=== PATIENT | male | born 1995 | race Two or more races ===

== ENCOUNTER 2024-10-12 02:41 | Emergency (ER) | payer OTHER, BC, SELFPAY ==
[2024-10-12 02:53] VITALS: BP 107/63; PULSE 71; RESP 18; TEMP 37.1; O2SAT 100
--- NOTE | 2024-10-12 02:56 | ECG_ITS ---
Test Date: 2024-10-12 03:03:16 Measurements Intervals [place] Rate: 73 P: 80 WV: 163 QRS: 68 QRSD: 98 T: 60 QT: 358 QTc: 396 Interpretive Statements SINUS RHYTHM EARLY PRECORDIAL R/S TRANSITION BASELINE ARTIFACT- I, II, III, AVR, AVL, AVF BORDERLINE ECG No previous ECG available for comparison Electronically Signed On 10-12-2024 07:37:56 CDT by Matthew Arthur D.O.
[2024-10-12 03:06] LABS: Hematocrit 46.3 % (42.0-52.0); Hemoglobin 14.9 g/dL (14.0-18.0); Immature Granulocyte Percent A 0.2 % (0-0.5); Lymphocytes Absolute Auto 4.97 K/mm3 (0.9-3.2); Mean Corpuscular HGB Conc 32.2 g/dl (32-36); Mean Corpuscular Hemoglobin 26.9 pg (26-34); Mean Corpuscular Volume 83.7 fl (80-100); Nucleated Red Blood Cells Absolute Auto 0.000 K/mm3 (0.0-0.012); Nucleated Red Blood Cells Perc 0.0 % (0.0-0.2); Platelet Count Result 248 k/mm3 (150-375); Red Blood Count 5.53 M/mm3 (4.6-6.20); White Blood Count 12.7 K/mm3 (4.5-10.0)
--- NOTE | 2024-10-12 03:30 | ED.SYNCOPE ---
HPI - Syncope General Chief Complaint: Syncope Stated Complaint: syncope Time Seen by Provider: 10/12/24 02:55 History of Present Illness HPI narrative: 29-year-old male with no pertinent past medical history presenting to the emergency department after a syncopal episode. Patient states that he has been up late working and did not eat anything since yesterday around midnight. States that he was feeling lightheaded and dizzy and when he went to go walk towards his truck to go home he felt lightheaded and passed out hitting his head against the ground. Did not have any traumatic injuries preceding the fall. Brief loss of consciousness. No blood thinner use. Attributes his symptoms to not eating and being over work last few days. Denies any chronic medical conditions and does not take any blood thinner medications. Acting appropriately here in requesting water. Does not know if his tetanus is up today. Has small abrasions superficially to the anterior forehead. Review of Systems Review of Systems: As reviewed above in HPI Exam Narrative: GENERAL: [Well-appearing, well-nourished, and in no acute distress.] HEAD: [Normocephalic, atraumatic.] EYES: [PERRLA and EOMI.] ENT: Nares clear, no rhinorrhea or epistaxis. Mucous membranes moist. NECK: Supple. CHEST: [Clear to auscultation. No respiratory distress.] HEART: [Regular rate and rhythm]. No murmur heard. [Normal peripheral pulses.] ABDOMEN: [Soft, nondistended], [nontender], [No rigidity or guarding] EXTREMITIES: Normal range of motion. [No edema.] SKIN: Linear abrasions to the anterior forehead without any laceration or active bleeding. 3.0 cm linear laceration very superficial to the lateral parietal scalp without any active bleeding. We no significant dehiscence. NEURO: [No focal deficits]. Alert and oriented [x3.] PSYCH: [Normal mood and affect.] Course Vital Signs Vital signs: Vital Signs Temperature 37.1 C 10/12/24 02:53 Pulse Rate 71 10/12/24 02:53 Respiratory Rate 18 10/12/24 02:53 Blood Pressure 107/63 10/12/24 02:53 Pulse Oximetry 100 10/12/24 02:53 Oxygen Delivery Room Air 10/12/24 02:53 Temperature 37.1 C 10/12/24 02:53 Pulse Rate 61 10/12/24 05:34 Respiratory Rate 18 10/12/24 05:34 Blood Pressure 114/65 10/12/24 05:34 Pulse Oximetry 97 10/12/24 05:34 Oxygen Delivery Room Air 10/12/24 02:53 Procedures Laceration Laceration 1: Date: 10/12/24 Time: 05:56 Site: scalp Side (If applicable): left Size (cm): 3 Description: linear Depth: simple, single layer Local Anesthetic: none Pre-repair: wound explored and irrigated ====== Skin Level ====== Skin layer closed with: dermabond and steri strips ====== Subcutaneous Layer ====== ====== Muscle Layer ====== ====== Tendon Layer ====== Dressing: non adhering dressing MDM - Syncope MDM Narrative Medical decision making narrative: 29-year-old male with no pertinent past medical history presenting to the emergency department after a syncopal episode. Patient states that he has been up late working and did not eat anything since yesterday around midnight. States that he was feeling lightheaded and dizzy and when he went to go walk towards his truck to go home he felt lightheaded and passed out hitting his head against the ground. Did not have any traumatic injuries preceding the fall. Brief loss of consciousness. No blood thinner use. Attributes his symptoms to not eating and being over work last few days. Denies any chronic medical conditions and does not take any blood thinner medications. Acting appropriately here in requesting water. Does not know if his tetanus is up today. Has small abrasions superficially to the anterior forehead. Patient is not any acute distress with reassuring vital signs here without any tachycardia, tachypnea, fever, hypoxia blood pressure concerns. He has an unremarkable neurological assessment, strong symmetric pulses. Clinically appears very well and has low criteria for any significant injury. Meet [place] head CT rules to exclude intracranial pathology at this time. Syncope likely postural and orthostatic verses less likely vasovagal and low suspicion cardiac in nature. 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 Given oral fluids as well without difficulty. Tetanus was updated and local wound care was applied for his forehead abrasions. He also has a separate laceration that is very superficial and not involving the deep tissues laterally on his parietal scalp. This will repaired with Dermabond and Steri-Strips. Hemostasis achieved. Labs show no significant abnormalities. Slight leukocytosis but no anemia or platelet concerns. No signs of infectious pathology. Normal electrolytes, glucose and LFTs. Normal creatinine. EKG shows sinus rhythm. Patient was observed here for several hours without any recurrence or any acute concerns. Remains hemodynamically stable. Tolerating oral intake and safe for discharge home at this time. Patient given return precautions and instructions with follow-up for his PCP. Medical Records Attestation: I reviewed the patient's medical records. Lab Data Attestation: I reviewed the patient's lab results. 10/12/24 02:59 10/12/24 02:59 Labs: Lab Results 10/12/24 Range/Units 02:59 WBC 12.7 H (4.5-10.0) K/mm3 RBC 5.53 (4.6-6.20) M/mm3 Hgb 14.9 (14.0-18.0) g/dL Hct 46.3 (42.0-52.0) % MCV 83.7 (80-100) fl MCH 26.9 (26-34) pg MCHC 32.2 (32-36) g/dl RDW 13.0 (11.5-14.5) % Plt Count 248 (150-375) k/mm3 MPV 10.4 (7.4-10.4) fl Immature Gran % (Auto) 0.2 (0-0.5) % Neut % (Auto) 51.2 (45.5-73.1) % Lymph % (Auto) 39.2 (18.3-44.2) % [place] % (Auto) 8.0 (2.6-8.5) % Eos % (Auto) 0.9 (0-4.4) % Baso % (Auto) 0.5 (0.2-1.2) % Lymph # (Auto) 4.97 H (0.9-3.2) K/mm3 [place] # (Auto) 1.0 H (0.1-0.6) K/mm3 Eos # (Auto) 0.1 (0-0.3) K/mm3 Baso # (Auto) 0.1 (0.0-0.1) K/mm3 Abs Immat Gran (auto) 0.03 (0.00-0.031) K/mm3 Absolute Neuts (auto) 6.5 (1.3-6.7) K/mm3 Absolute Nucleated RBC 0.000 (0.0-0.012) K/mm3 Nucleated RBC % 0.0 (0.0-0.2) % Sodium 138 (137-145) mmol/L Potassium 3.5 (3.4-5.0) mmol/L Chloride 102 (98-107) mmol/L Carbon Dioxide 24 (22-30) mmol/L Anion Gap 12 (4-12) mmol/L BUN 13 (9-20) mg/dL Creatinine 1.18 (0.7-1.3) mg/dL Estim Creat Clear Calc 77 ml/min Estimated GFR > 60 (59 - ) Glucose 117 H (65-110) mg/dL Calcium 10.1 (8.4-10.2) mg/dL Total Bilirubin 0.6 (0.2-1.3) mg/dL AST 31 (17-59) U/L ALT 30 (6-50) U/L Alkaline Phosphatase 76 (38-126) U/L Total Protein 8.1 (6.3-8.2) g/dL Albumin 4.8 (3.5-5.1) g/dL Discharge Plan Discharge Clinical Impression: Syncope, Abrasion of forehead, Laceration of scalp Patient Disposition: Home Condition: Stable Instructions: Antibiotic Form, Syncope (ED) Additional Instructions: Your labs are reassuring, no signs of any acute urgent or emergent concerns. Maintain good hydration and oral intake, try not to skip any meals. Return with any emergent concerns otherwise follow-up with regular doctor. Keep the laceration area clean and dry and covered for the next 24 hours. Bandage dressing changes as needed. Follow-up with regular doctor. Allow the skin glue to drive for the next 24 hours and then it will fall off over 3-5 days naturally. Patient Language: Sinhala Follow-up/Referrals: PHYSICIAN,CLINICAL INFORMATICS EDUCATOR [Primary Care Provider] - Time of Disposition: 05:08
[2024-10-12] MEDS: DEXTROSE 5%/LACTATED RINGERS 1,000 ML 1000 ML IV CONT (03:50)
[2024-10-12] MEDS: TETANUS,DIPHTHERIA,AC PERTUSSIS ADULT (0.5 ML) BOOSTRIX IM (03:52)
--- OUTSIDE RECORDS SUMMARY | 2024-10-12 04:03 | XMS_ITS | Clinical Summary ---
Author Organization [employer] [facility] Address [address] [place] [address] Care Team Providers Care Collating Machine Operator Name Role Phone Carlos Enrique Mann MD Primary Care Provider [phone] Allergies No known active allergies Medications multivitamin (DAILY-FRAN) tablet Take 1 Tablet by mouth daily. Active clindamycin phosphate (CLEOCIN T) 1 % Gel Apply to affected area 2 times daily. 60 Gram 3 11/20/2023 Active clotrimazole (LOTRIMIN) 1 % CreamIndication s:Lesion of right nipple Apply to affected area 2 times daily. 14 Gram 07/02/2024 Active Active Problems Problem Noted Date Diagnosed Date Lesion of right nipple 07/02/2024 Overview (07/02/2024): 07/02/24 - present for two months, not resolving, hyperpigmented see media tab for photos, no drainage, minimal tenderness, no hx of piercing or injury. - trial of lotrimin cream and referral to derm. Assessment & Plan (07/02/2024 4:29 PM CDT): Trial of lotrimin cream and referral to derm. Tinnitus of right ear 06/04/2024 Overview (07/02/2024): 07/02/24 - improved after prednisone, only happens occasionally, no change in hearing, offered ENT referral but declines at this time. Assessment & Plan (07/02/2024 4:30 PM CDT): Offered referral to ENT but declines at this time since symptoms are mild and infrequent. Tobacco use 04/12/2024 Overview (04/12/2024): 04/12/24 -He vapes frequently throughout the day Assessment & Plan (04/12/2024 8:36 AM FEATHER SAWYER): Suboptimal control. Recommend cessation of tobacco use he is not ready to quit at this time. Acute right ankle pain 04/12/2024 Overview (04/12/2024): 04/12/24 -He is here with complaints of about 3 weeks of intermittent medial right ankle pain and tenderness, he also has swelling that waxes and wanes. 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 He states pain is worse when he gets off of work and especially when he is driving long distances. On exam there is minimal swelling some resolving ecchymosis around the medial malleolus of the right ankle, no tenderness on palpation of the malleolus but there is soft tissue tenderness. He is concerned about the blood vessel around the malleolus as well which looks normal in the office today but he states sometimes looks more prominent. He has normal pedal pulses normal function of the foot strength and movement of the toes and foot flexion and extension. Sensation is intact. Assessment & Plan (04/12/2024 8:36 AM FEATHER SAWYER): Likely overuse injury from work related boots and rubbing on the area. He would like an x-ray Recommend using a ankle sleeve for compression and protection Take the boot off when he is driving and wear more comfortable shoes Use ibuprofen twice a day with food Ice after work and elevate. He will call if symptoms do not improve in 2 weeks. Family history of heart disease 11/20/2023 Overview (11/20/2023): 11/20/23: mother has heart disease, diabetes. Assessment & Plan (11/20/2023 2:59 PM CDT): Continue to follow and monitor for signs and symptoms of clinical complications. 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 Has shoulder pain (R>L), back pain, etc. Provided home exercises. Also recommend icing at end of day. Assessment & Plan (11/20/2023 3:06 PM CDT): Provided home exercises. Also recommend icing at end of day. Lipoma of head 11/20/2023 Overview (11/20/2023): 11/20/23: has a small nodule just behind the right ear, exam consistent with small lipoma. Patient wears ear protection for work, could be related to that. Not bothersome at this time. Assessment & Plan (11/20/2023 3:11 PM CDT): Continue to follow and monitor for signs and symptoms of clinical complications. Acne 11/20/2023 Overview (11/20/2023): 11/20/23: patient states he gets acne on the back of the neck and on the cheek often, he wears hard hat for work and it tend to occur at contact points between hat and scalp. Has tried using facial medical parasitologist but they keep coming back. Will try topical clindamycin gel to see if it helps. If it doesn't work after a few weeks, can try topical tretinoin. Assessment & Plan (11/20/2023 3:13 PM CDT): Will try topical clindamycin gel to see if it helps. If it doesn't work after a few weeks, can try topical tretinoin. Encounters Date Type Department Care Team Description 10/08/2024 External Device Data [facility] ABSTRACTION Provider, Abstract 08/21/2024 External Device Data [facility] ABSTRACTION Provider, Abstract 07/25/2024 External Device Data [facility] ABSTRACTION Provider, Abstract from Last 3 Months Immunizations Immunization Administration Dates Next Due (ADACEL/BOOSTRIX)(10 YR UP) TDAP VACCINE, 0.5ML, IM 11/28/2023 (GARDASIL 9)(9-45 YRS) HUMAN PAPILLOMAVIRUS VACCINE, TYPES 6, 11, 16, 18, 31, 33, 45, 52, 58, NONAVALENT (9VHPV), 2 OR 3 DOSE, IM 05/20/2024,11/21/2023 (HEPLISAV-B)(18 YR UP) HEPAT ITIS B VACCINE CPG-ADJUVANTED (HEPB-CPG) 2-4 DOSE, IM 01/29/2024,12/25/2023 HPV, Unspecified Formulation 11/21/2023 Influenza Seasonal Unspecified Formulation IM Influenza Seasonal Unspecified Formulation PF IM 12/25/2023 Family History Medical History Relation Name Comments Hypertension Father Stevie Magallanes Diabetes Mother Maya Sanchez High Cholesterol Mother Maya Sanchez Hypertension Mother Maya Sanchez Relation Name Status Comments Father Stevie Magallanes Mother Maya Sanchez Social History Tobacco Use Types Packs/Day Years Used Date Smoking Tobacco: Former Cigarettes 1 3 2 - 2019 Smokeless Tobacco: Current Comments:Smoked cigarettes f or 3 years, now vape. Alcohol Use Standard Drinks/Week Comments Yes 1 (1 standard drink = 0.6 oz pure alcohol) occasionally, every month or two. Sex and Gender Information Value Date Recorded Sex Assigned at Male 11/13/2023 10:56 PM CDT Legal Sex Male 2:28 AM CDT Gender Identity Male 11/13/2023 10:56 PM CDT Sexual Orientation Straight 11/13/2023 10 :56 PM CDT Last Filed Vital Signs Vital Sign Reading Time Taken Comments Blood Pressure 115/68 07/02/2024 11:06 AM CDT Pulse 80 07/02/2024 11:06 AM CDT Temperature 36.7 C (98.1 F) 07/02/2024 11:06 AM CDT Respiratory Rate - - Oxygen Saturation 99% 07/02/2024 11:06 AM CDT Inhaled Oxygen Concentration - - Weight 68.5 kg (151 lb) 07/02/2024 11:06 AM CDT Height 170.2 cm (5' 7) 07/02/2024 11:06 AM CDT Body Mass Index 23.65 07/02/2024 11:06 AM CDT Plan of Treatment Upcoming Encounters Date Type Department Care Team (Late st Contact Info) Description 11/19/2024 3:00 PM CDT Office Visit [facility] Primary Care - [facility] [address] [facility] [address] [place] [address] [place] [id number] [facility] [address] [place] [address] Health Maintenance Due Date Last Done Comments COVID-19 Vaccine (3 - 2023- season) 11/05/202311/2020, 08/19/2020 Preventative Visit- Commercial 03/06/2024 11/20/2023 HPV VACCINES (3 - Male 3-dose series) 08/12/2024 05/20/2024, 11/21/2023, 11/21/2023 INFLUENZA VACCINE (#1) 2024 12/25/2023, 2023 DTAP/TDAP/TD VACCINES (2 - T d or Tdap) 11/27/2033 11/28/2023 HEPATITIS B VACCINES Completed 01/29/2024, 12/25/19 24 Insurance [facility] BLUE ACCESS CHOICE Care Teams Collating Machine Operator Relationship Specialty Start [place] [id number] [facility] [address] [place] [address] PCP - General Internal Medicine 11/20/23
[2024-10-12 04:04] LABS: Alanine Aminotransferase 30 U/L (6-50); Albumin Level 4.8 g/dL (3.5-5.1); Alkaline Phosphatase 76 U/L (38-126); Anion Gap 12 mmol/L (4-12); Aspartate Amino Transferase 31 U/L (17-59); Bilirubin,Total 0.6 mg/dL (0.2-1.3); Blood Urea Nitrogen 13 mg/dL (9-20); Calcium 10.1 mg/dL (8.4-10.2); Carbon Dioxide 24 mmol/L (22-30); Chloride 102 mmol/L (98-107); Estimated CRCL calculation 77 ml/min; Estimated Glomerular Filt Rate > 60; Glucose 117 mg/dL (65-110); Potassium 3.5 mmol/L (3.4-5.0); Sodium 138 mmol/L (137-145); Total Protein 8.1 g/dL (6.3-8.2)
[2024-10-12 05:34] VITALS: BP 114/65; PULSE 61; RESP 18; O2SAT 97
== END 2024-10-12 05:35 | disposition home or self-care (01) ==
PROVIDERS: Emergency Provider Student in an Organized Health Care Education/Training Program
DX: S01.01XA Laceration without foreign body of scalp, initial encounter (principal); R55 Syncope and collapse; Z23 Encounter for immunization
CPT/HCPCS: 12002; 36415; 80053; 85025; 90471; 90715; 93005; 99284; J7121